=== PATIENT | female | born 1980 | race Caucasian/White ===

== ENCOUNTER 2022-06-18 00:41 | Day surgery (SDC) | payer OTHER, SELFPAY ==
[2022-06-09 10:24] VITALS: BMI 23.1
--- NOTE | 2022-06-09 10:30 | PC.NURSE ---
Report to the Outpatient Waiting Room, entrance under the green pavilion located off [facility], at time 0615 on date 06/18/22. Planned Procedure Time: 0815. Time changes happen often and if your time is changed the preop area will call you the afternoon before. - You and your visitor will be asked to self-screen and do not enter if you have any COVID symptoms. - Only one visitor is requested with a max of two and NO children visitors are allowed at this time. - The patient visitor may be requested to leave or wait in car when not with patient due to distancing restrictions. - A mask is optional within the hospital at this time. Patients may have clear liquids (water, carbonated beverages, clear teas, apple juice) until 3 hours prior to surgery with a maximum of 20 ounces. - No food from midnight until time of surgery Take the following medications with a SIP of water the morning of surgery: METHIMAZOLE DO NOT STOP ANY OF YOUR OTHER PRESCRIPTION MEDICATIONS PRIOR TO SURGERY?EXCEPT THE FOLLOWING Medications to discontinue per physician: N/A Date to take last dose: N/A Please no make-up, nail omani, hairspray, perfume, deodorant, or body powder the day of surgery. No jewelry (including any body piercings) or valuables the day of surgery, leave them at home. Please take a shower or bath the night before, or the morning of, surgery with an antibacterial soap. Wear comfortable, loose fitting clothing. - Jewelry must be removed prior to entering the operating room. Rings and piercings that are not removed may be cut off. - The hospital will not accept responsibility for valuables. - Please leave all valuables, including medications, at home the day of surgery. If you are going home after surgery, a licensed set key driver must drive you home. - NO public transportation without another adult if you receive anesthesia. - We recommend that an adult stay with you for 24 hours following discharge. - We also recommend that you do not drive, make important decision, drink alcoholic beverages, or take any drugs that were not prescribed by your health care provider for at least 24 hours after your discharge time. Follow any additional instructions given to you from your surgeon. If you or anyone in your household have experienced Covid symptoms in the past week, please notify your surgeon or the nurse liaison at the phone number below for possible testing. Telephone instructions given to PT - JAMAL MUÑOZ and asked if any additional questions and then verbalized understanding. Patient advised to call surgeon office or pre surgery nurse liaison [phone] if any additional questions.
--- NOTE | 2022-06-18 07:50 | P.HP_ITS ---
H&P: HPI History of Present Illness Date/Time: 06/18/22 07:50 41-year-old female currently on control pills with irregular spotting and cramping. When not on control pills the bleeding is significantly heavier and more prolonged. She is not interested in further childbearing and to have vasectomy performed in the near future. Chief Complaint: Irregular vaginal bleeding Review of Systems Review of Systems: All systems reviewed & are unremarkable except as noted in HPI and below PMFSH Past Medical History Medical History Graves disease Heart murmur Melanoma Vaginal delivery 01/09/14 [place] no complications Surgical History Surgical History History of surgical removal of skin lesion removed from lip and upper thigh Family History Family History Mother Hypercholesterolemia Social History Social History Smoking status: Never smoker Alcohol intake: current Drinks per week: 2 Substance use: never Substance use type: does not use Living arrangements: with family Additional living arrangements comments: Occupation/Education: occupation 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 Gender identity (if verbalized by the patient): Female Sexual Orientation (if Verbalized by the Patient): Straight or Heterosexual Spiritual care concerns: No Meds Home Medications and Allergies Home Medications Medication Instructions Recorded Confirmed Type drospirenone 3 mg-ethinyl 1 tablet PO DAILY #84 tabs 01/21/22 06/09/22 Rx estradiol 0.02 mg tablet (MURTAZA (28)) methimazole 10 mg tablet 10 mg PO DAILY 01/21/22 06/09/22 History sapropterin 100 mg soluble tablet 700 mg PO DAILY 01/21/22 06/09/22 History Allergies Allergy/AdvReac Type Severity Reaction Status Date / Time Sulfa (Sulfonamide Allergy Unknown Unknown Verified 06/09/22 10:23 Antibiotics) Exam Const: General: cooperative and healthy appearing Resp: Effort & Inspection: normal respiratory effort Auscultation: clear to auscultation bilaterally Cardio: Rate: regular rate Rhythm: regular rhythm GI: Inspection: normal to inspection Auscultation: normal bowel sounds : External Female Exam: normal external appearance Speculum Exam - Vagina: normal appearance of the vagina Speculum Exam - Cervix: normal appearance of the cervix Bimanual exam- vagina & uterus: normal bimanual exam Bimanual Exam- Adnexa, other: normal adnexae Assessment and Plan Assessment and plan (1) Irregular bleeding: Code(s): N92.6 - Irregular menstruation, unspecified Status: Acute Assessment and Plan: 1. Hysteroscopy with uterine curettings 2. Endometrial ablation
--- NOTE | 2022-06-18 07:52 | WPDHPUPDATE1 ---
History and Physical Update Update Date/Time: 06/18/22 07:52 History and Physical has been reviewed, including an updated exam of the patient. There are NO changes in the patient's condition. Risks, benefits, and alternatives have been discussed and questions answered. Patient agrees to proceed with procedure.
[2022-06-18 09:16] VITALS: BP 131/69; PULSE 81; RESP 20; TEMP 36.7; O2SAT 100
[2022-06-18] MEDS: ACETAMINOPHEN 500 MG TABLET 1000 MG PO (09:43)
[2022-06-18] MEDS: LACTATED RINGERS 1,000 ML 30 ML IV CONT (09:45)
--- NOTE | 2022-06-18 09:53 | P.PNAN_ITS ---
Anes - Initial Pre Proc Eval Procedure: Operation Date: 06/18/22 11:00 Proposed Procedures p Hysteroscopy Dilation and Curettage with Kendra Endometrial Ablation - Serg Albert MD Date/Time: 06/18/22 09:53 Surgeon: Serg Albert MD Pre Op Diagnosis: abnormal uterine bleeding Patient Data Age: 41 Gender: F Height: 1.64 m Weight: 62.14 kg Allergies Allergy/AdvReac Type Severity Reaction Status Date / Time Sulfa (Sulfonamide Allergy Unknown Unknown Verified 06/09/22 10:23 Antibiotics) Home Medications Medication Instructions Recorded Confirmed Type drospirenone 3 mg-ethinyl 1 tablet PO DAILY #84 tabs 01/21/22 06/18/22 Rx estradiol 0.02 mg tablet (MURTAZA (28)) methimazole 10 mg tablet 10 mg PO DAILY 01/21/22 06/18/22 History sapropterin 100 mg soluble tablet 700 mg PO DAILY 01/21/22 06/18/22 History Patient hx anesthesia problems: none Family hx anesthesia problems: none Results Review: All pre-operative results and documents have been reviewed as part of the pre- operative evaluation. 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 Gender identity (if verbalized by the patient): Female Sexual Orientation (if Verbalized by the Patient): Straight or Heterosexual Spiritual care concerns: No Anes - Eval Final PreProcedure Day of Procedure 06/18/22 09:53 Patient weight: normal Heart: regular rate and rhythm Lungs: clear to auscultation Airway: Mallampati scale class II Neurological: alert and oriented Last oral intake: >/= 8 hours ASA classification: II Emergent: no Anesthetic plan: proceed Anesthesia type and monitoring: general GIVS and standard monitoring Results Review: All pre-operative results and documents have been reviewed as part of the pre- operative evaluation. Informed Consent: The patient's anesthetic plan and its attendant risks and benefits were discussed with the patient/family/POA. Questions were solicited and answers provided to the satisfaction of the patient/family/POA.
[2022-06-18] MEDS: ceFAZolin 2 GM/D5W 50 ML 2 GM/50 ML BAG IVPB (10:10)
--- NOTE | 2022-06-18 10:36 | W.PM.PROC2 ---
Procedure Note - Detailed Date of Procedure 06/18/22 Pre-op Diagnosis abnormal uterine bleeding Post-op Diagnosis Same Procedure Performed 1. Hysteroscopy with uterine curettings 2. Endometrial ablation Surgeon Serg Albert MD Anesthesia MAC Findings no abnormalities noted on hysteroscopic exam Description of Procedure patient prepped and draped manner for this procedure. Cervix dilated to allow hysteroscope replaced revealed no specific abnormalities. Endometrial ablation instrument was placed and cavity assessment performed. End of the cavity assessment the instrument was activated and at the end of the procedure destruction was noted throughout. At this point the patient was sent to recovery stable condition. Estimated Blood Loss 10 Drains No Packing No Pathology Yes Complications No immediate complications Condition Stable Disposition PACU [facility] Billing Surgery - Charge Forward: Surgery Billing
[2022-06-18 10:37] VITALS: BP 120/74; PULSE 97; RESP 14; O2SAT 100
[2022-06-18 10:55] VITALS: BP 116/67; PULSE 82; RESP 16; O2SAT 100
[2022-06-18 11:25] VITALS: BP 131/76; PULSE 69; RESP 16
[2022-06-18 11:42] VITALS: BP 119/73; PULSE 72; RESP 16
== END 2022-06-18 11:53 | disposition home or self-care (01) ==
PROVIDERS: Visit Provider Obstetrics & Gynecology
PROC: 0U5B8ZZ Destruction of Endometrium, Via Natural or Artificial Opening Endoscopic (ICD-10-PCS; CPT 58563; principal; 2022-06-18 11:00)
DX: N92.6 Irregular menstruation, unspecified (principal); E05.00 Thyrotoxicosis with diffuse goiter without thyrotoxic crisis or storm
CPT/HCPCS: 58563; 88305; A9270; J0690; J1885; J2250; J2704; J7120